=== PATIENT | male | born 1985 | race American Indian/Alaskan Native ===

== ENCOUNTER 2020-12-13 12:42 | Emergency (ER) | payer SELFPAY ==
[2020-12-13 12:48] VITALS: BP 118/46
--- NOTE | 2020-12-13 12:48 | Emergency Department Report ---
ED General Adult HPI - General Stated complaint: RT FOOT BIG TOE Time Seen by Provider: 12/13/20 12:46 - History of Present Illness Initial comments: 35-year-old -[place] male patient presents with complaints of right toe pain x1 week. Patient states the pain began after he kicked a box while at work last week. He rates his pain as a 6/10 in severity states it worsens in the morning and with touch. No bruising or swelling per patient. He denies any numbness or tingling. - Related Data Previous Rx's Medication Instructions Recorded Last Taken Type Naproxen [Naprosyn] 500 mg PO BID PRN #14 tablet 12/13/20 Unknown Rx Allergies Allergy/AdvReac Type Severity Reaction Status Date / Time No Known Allergies Allergy Unverified 12/13/20 12:44 ED Review of Systems ROS: Stated complaint: RT FOOT BIG TOE Other details as noted in HPI Musculoskeletal: arthralgia. denies: joint swelling Skin: denies: change in color Neurological: denies: numbness, paresthesias, abnormal gait ED Past Medical Hx - Past Medical History Previous Medical History?: No - Surgical History Past Surgical History?: No - Medications Home Medications: Home Medications Medication Instructions Recorded Confirmed Last Taken Type Naproxen [Naprosyn] 500 mg PO BID PRN #14 tablet 12/13/20 Unknown Rx ED Physical Exam - General General appearance: alert, in no apparent distress - Head Head exam: Present: atraumatic, normocephalic, normal inspection - Respiratory Respiratory exam: Absent: respiratory distress - Cardiovascular Cardiovascular Exam: Present: regular rate - Extremities Exam Extremities exam: Present: other (Tenderness to palpation noted of the right great toe PIP joint without obvious deformity, swelling, erythema, or bruising; patient has normal perfusion and range of motion of the toe) - Neurological Exam Neurological exam: Present: alert, oriented X3 - Psychiatric Psychiatric exam: Present: normal affect, normal mood - Skin Skin exam: Present: warm, dry, intact, normal color. Absent: rash ED Course Vital Signs 12/13/20 12:45 Temperature 98.4 F Pulse Rate 95 H Respiratory 189 H Rate Blood Pressure 118/46 O2 Sat by Pulse 96 Oximetry ED Medical Decision Making - Radiology Data Radiology results: report reviewed XR toe(s) 2+V RT INDICATION / CLINICAL INFORMATION: Great toe PIP pain after stubbing injury. COMPARISON: None available. FINDINGS/IMPRESSION: No acute fracture or malalignment. There is mild hallux valgus. No significant arthritis. No focal soft tissue abnormality. - Medical Decision Making 35-year-old -[place] male patient presents with complaints of right toe pain x1 week. Patient states the pain began after he kicked a box while at work last week. He rates his pain as a 6/10 in severity states it worsens in the morning and with touch. No bruising or swelling per patient. He denies any numbness or tingling. Critical care attestation.: If time is entered above; I have spent that time in minutes in the direct care of this critically ill patient, excluding procedure time. ED Disposition Clinical Impression: Sprain of right great toe Qualifiers: Encounter type: initial encounter Qualified Code(s): S93.501A - Unspecified sprain of right great toe, initial encounter Disposition: DC-01 TO HOME OR SELFCARE Is pt being admited?: No Condition: Stable Instructions: Turf Toe Prescriptions: Naproxen [Naprosyn] 500 mg PO BID PRN #14 tablet PRN Reason: pain Referrals: [facility] [Provider Group] - 3-5 Days
--- NOTE | 2020-12-13 13:15 | XRay Report ---
XR toe(s) 2+V RT INDICATION / CLINICAL INFORMATION: Great toe PIP pain after stubbing injury. COMPARISON: None available. FINDINGS/IMPRESSION: No acute fracture or malalignment. There is mild hallux valgus. No significant arthritis. No focal so ft tissue abnormality. Signer Name: Efrain Lakhani MD Signed: 12/13/2020 1:10 PM Workstation Name: [id number]
== END 2020-12-13 14:58 | disposition home or self-care (01) ==
LOC: ED 12:42
DX: S93.501A Unspecified sprain of right great toe, initial encounter (principal); Z79.899 Other long term (current) drug therapy; W22.8XXA Striking against or struck by other objects, initial encounter; Y93.89 Activity, other specified; Y92.89 Other specified places as the place of occurrence of the external cause; Y99.8 Other external cause status
CPT/HCPCS: 99283

== ENCOUNTER 2021-01-08 06:17 | Emergency (ER) | payer OTHER ==
[2021-01-08 06:27] VITALS: BP 136/83
--- NOTE | 2021-01-08 07:03 | XRay Report ---
RIGHT HAND 4 VIEWS INDICATION: pain and swelling. COMPARISON: No relevant prior imaging study available. FINDINGS: No acute fracture or dislocation is seen. There is mild soft tissue swelling. No foreign bodies. IMPRESSION: 1. No acute fracture or dislocation. Signer Name: Tj Leslie MD Signed: 01/08/2021 6:59 AM Workstation Name: [id number]
--- NOTE | 2021-01-08 08:30 | Emergency Department Report ---
ED General Adult HPI - General Chief complaint: Extremity Injury, Upper Stated complaint: RT HAND INJURY Time Seen by Provider: 01/08/21 08:21 Source: patient Mode of arrival: Ambulatory Limitations: No Limitations - History of Present Illness Initial comments: 35-year-old [id number] male patient presents to the emergency department with complaints of traumatic right fourth finger pain starting yesterday. Patient states he was at work when he accidentally slammed his finger into a door. No history of prior injuries to the right hand. No other injuries. Denies shoulder pain, elbow pain, arm pain, wrist pain, paresthesias, numbness, skin color changes. Denies all other complaints at this time. - Related Data Previous Rx's Medication Instructions Recorded Last Taken Type Naproxen [Naprosyn] 500 mg PO BID PRN #14 tablet 12/13/20 Unknown Rx Allergies Allergy/AdvReac Type Severity Reaction Status Date / Time No Known Allergies Allergy Verified 01/08/21 06:27 ED Review of Systems ROS: Stated complaint: RT HAND INJURY Other details as noted in HPI Other: GENERAL: Negative for fever. CARDIOVASCULAR: Negative for chest pain. PULMONARY: Negative for shortness of breath. GASTROINTESTINAL: Negative for abdominal pain. MUSCULOSKELETAL: Positive for finger pain. NEUROLOGICAL: Negative for headache. INTEGUMENTARY: Negative for rash. ED Past Medical Hx - Past Medical History Previous Medical History?: No - Surgical History Past Surgical History?: No - Social History Smoking Status: Never Smoker Substance Use Type: None - Medications Home Medications: Home Medications Medication Instructions Recorded Confirmed Last Taken Type Naproxen [Naprosyn] 500 mg PO BID PRN #14 tablet 12/13/20 Unknown Rx ED Physical Exam - General Limitations: No Limitations - Other Other exam information: General: Awake, appropriately interactive, no acute distress. Neck: Supple. Full range of motion intact. Cardiovascular: Normal peripheral perfusion. Pulmonary: No respiratory distress. Patient is speaking normally without use of accessory muscles. Skin: No apparent rashes or lesions. Neurological: No facial asymmetry. Speech is clear. Follows commands. Patient is alert and oriented. Musculoskeletal: Tenderness to palpation along the distal aspect of the right fourth finger with mild soft tissue swelling. Nail is intact. Active and passive range of motion intact with and without resistance in all directions. No obvious deformity or dislocation. No tenderness of the anatomical snuffbox. Distal neurovascular and motor/sensory function intact. Psych: Cooperative. Appropriate mood and affect. ED Course Vital Signs 01/08/21 06:22 Temperature 98.1 F Pulse Rate 94 H Respiratory 16 Rate Blood Pressure 136/83 O2 Sat by Pulse 100 Oximetry ED Medical Decision Making - Radiology Data Study Comments [facility] [address] [place] [address] XRay Report Signed Patient: DUSTIN ONEILL MR#: [id number] : 1985 Acct:[id number] Age/Sex: 35 / M ADM Date: 01/08/21 Loc: ED Attending Dr: Ordering Physician: ED MD CHRSI Date of Service: 01/08/21 Procedure(s): XR hand 3+V RT Accession Number(s): [id number] cc: ED MD CHRIS Fluoro Time In Minutes: RIGHT HAND 4 VIEWS INDICATION: pain and swelling. COMPARISON: No relevant prior imaging study available. FINDINGS: No acute fracture or dislocation is seen. There is mild soft tissue swelling. No foreign bodies. IMPRESSION: 1. No acute fracture or dislocation. Signer Name: Tj Leslie MD Signed: 01/08/2021 6:59 AM Workstation Name: [id number] Transcribed By: Dictated By: Tj Leslie MD Electronically Authenticated By: Tj Leslie MD Signed Date/Time: 01/08/21658 DD/ 6 TD/TT: - Medical Decision Making Differential diagnosis including but not limited to: sprain, strain, fracture, contusion, dislocation, subungual hematoma On re evaluation, patient remains stable. Repeat neurovascular exam remains intact. X-ray of the right hand shows soft tissue swelling without acute fracture or dislocation. History and exam findings consistent with contusion of the right fourth finger. Patient will be placed in a splint and referred to local primary care provider for close outpatient follow-up. Patient expressed understanding and is agreeable to plan of care. RICE precautions discussed. Strict return precautions provided. Repeat exam is unremarkable and benign. History, exam, diagnostic testing, and current condition do not suggest worrisome pathology to warrant further testing, continued ED treatment, admission, or surgical evaluation at this point. Given the low probability of a significant medical illness, it would be more likely to result in harm than benefit to perform further testing at this stage. Discussed findings, presumptive diagnosis, need for follow-up and specific signs/symptoms that should prompt immediate return to the emergency department. Instructions were explained in detail to the patient in addition to giving written discharge information. Patient expressed understanding and was given the opportunity to ask questions, all of which were satisfactorily answered prior to discharge home. Critical care attestation.: If time is entered above; I have spent that time in minutes in the direct care of this critically ill patient, excluding procedure time. ED Disposition Clinical Impression: Contusion of finger of right hand Qualifiers: Encounter type: initial encounter Finger: ring finger Damage to nail status: without damage Qualified Code(s): S60.041A - Contusion of right ring finger without damage to nail, initial encounter Disposition: TO HOME OR SELFCARE Is pt being admited?: No Does the pt Need Aspirin: No Condition: Stable Instructions: Contusion, [id number] Additional Instructions: Take Tylenol every 4 hours and Motrin every 8 hours as needed for pain. Wear finger splint as directed. Apply ice to the affected area as needed to reduce swelling. Keep right hand elevated as often as possible to reduce swelling. Follow-up with Dr. Cruz, primary care provider, this week. Call today to schedule an appointment. Return to the emergency department immediately for new or worsening symptoms. Referrals: RODRIGUEZ CRUZ MD [Staff Physician] - 3-5 Days Forms: Work/School Release Form(ED) Time of Disposition: 08:29
== END 2021-01-08 08:53 | disposition home or self-care (01) ==
LOC: ED 06:17
DX: S60.041A Contusion of right ring finger without damage to nail, initial encounter (principal); Z79.899 Other long term (current) drug therapy; X58.XXXA Exposure to other specified factors, initial encounter; Y93.89 Activity, other specified; Y92.89 Other specified places as the place of occurrence of the external cause; Y99.0 Civilian activity done for income or pay